=== PATIENT | female | born 1985 | race African-American/Black ===

== ENCOUNTER 2020-02-13 05:26 | Emergency (ER) | payer MEDICAID, OTHER ==
[~2020-02-13] VITALS: Ht 170.2 cm; Wt 76.2 kg
[~2020-02-13 05:26] MED LIST: BCP
[2020-02-13 05:34] VITALS: BP 128/86
== END 2020-02-13 08:02 | disposition home or self-care (01) ==
LOC: ER 05:26
DX: N76.4 Abscess of vulva (principal)
CPT/HCPCS: 56405

== ENCOUNTER 2021-05-23 03:06 | Emergency (ER) | payer MEDICAID ==
[~2021-05-23] VITALS: Ht 170.2 cm; Wt 83.0 kg
[2021-05-23 03:08] VITALS: BP 124/89
[2021-05-23 03:44] LABS: Mean Corpuscular Volume 92.6 fL (80.0-100.0); Nucleated Red Blood Cells % 0.1 %
[2021-05-23 04:02] LABS: Albumin 4.1 g/dL (3.4-5.0); Basophils # (auto) 0 10 ^3/uL (0-0.2); Basophils % (auto) 0.7 % (0.0-2.0); Calcium 9.2 mg/dL (8.5-10.1); Eosinophils # (auto) 0.1 10 ^3/uL (0-0.8); Eosinophils % (auto) 1.6 % (0.0-7.0); Hematocrit 42.6 % (36.0-46.0); Hemoglobin 14.1 g/dL (12.2-16.2); Lymphocytes # (auto) 2.1 10 ^3/uL (0.4-5.4); Lymphocytes % (auto) 31.5 % (10.0-50.0); Mean Corpuscular Hemoglobin 30.6 pg (28.0-32.0); Monocytes # (auto) 0.7 10 ^3/uL (0-1.3); Neutrophils # (auto) 3.7 10 ^3/uL (1.6-8.6); Neutrophils % (auto) 56.2 % (37.0-80.0); Potassium 4.3 mmol/L (3.5-5.1); Red Blood Cells 4.61 10^6/uL (4.0-5.20); Red Cell Distribution Width 13.4 % (11.8-14.3); White Blood Cell 6.6 10^3/uL (4.4-10.8)
[2021-05-23 04:03] LABS: BUN/Creatinine Ratio 16.3
[2021-05-23 04:06] LABS: Bilirubin, Total 0.2 mg/dL (0.2-1.0); Total Protein 8.3 g/dL (6.4-8.2)
[2021-05-23 04:08] LABS: Urine Bacteria FEW /hpf (None Seen); Urine Blood 2+ /uL (Negative); Urine Mucus FEW (None Seen); Urine Specific Gravity 1.025 (1.001-1.035); Urine WBC 5 /hpf (0 - 5)
[2021-05-24] MEDS ORDERED: NITR-87 PO (05:00)
[2021-05-24] MEDS ORDERED: ONDA-144 PO (05:00)
== END 2021-05-23 06:03 | disposition left against medical advice (07) ==
LOC: ER 03:06
DX: N93.9 Abnormal uterine and vaginal bleeding, unspecified (principal); Z53.21 Procedure and treatment not carried out due to patient leaving prior to being seen by health care provider
CPT/HCPCS: 36415; 80053; 81001; 84702; 85025

== ENCOUNTER 2021-05-24 01:33 | Emergency (ER) | payer MEDICAID ==
[~2021-05-24] VITALS: Ht 170.2 cm; Wt 82.6 kg
[2021-05-24] MEDS ORDERED: NITR-87 PO (05:00)
[2021-05-24] MEDS ORDERED: ONDA-144 PO (05:00)
[2021-05-24 06:01] VITALS: BP 118/69
== END 2021-05-24 06:09 | disposition home or self-care (01) ==
LOC: ER 01:33
DX: N93.9 Abnormal uterine and vaginal bleeding, unspecified (principal); N39.0 Urinary tract infection, site not specified
CPT/HCPCS: 76830; 76856

== ENCOUNTER 2021-11-21 10:26 | Emergency (ER) | payer MEDICAID ==
[~2021-11-21] VITALS: Ht 170.2 cm; Wt 83.9 kg
[~2021-11-21 10:26] MED LIST changes: +NITR-87 PO; +ONDA-144 PO
[2021-11-21 11:16] LABS: Urine Bacteria FEW /hpf (None Seen); Urine Blood Negative /uL (Negative); Urine Mucus FEW (None Seen); Urine Specific Gravity 1.022 (1.001-1.035); Urine WBC 1 /hpf (0 - 5)
[2021-11-21 13:57] LABS: Basophils # (auto) 0 10 ^3/uL (0-0.2); Basophils % (auto) 0.7 % (0.0-2.0); Eosinophils # (auto) 0.1 10 ^3/uL (0-0.8); Eosinophils % (auto) 1.4 % (0.0-7.0); Hematocrit 40.2 % (36.0-46.0); Hemoglobin 13.2 g/dL (12.2-16.2); Lymphocytes # (auto) 1.7 10 ^3/uL (0.4-5.4); Lymphocytes % (auto) 35.4 % (10.0-50.0); Mean Corpuscular Hemoglobin 30.1 pg (28.0-32.0); Mean Corpuscular Hgb Conc. 32.7 g/dL (32.0-36.0); Mean Corpuscular Volume 91.9 fL (80.0-100.0); Monocytes # (auto) 0.5 10 ^3/uL (0-1.3); Monocytes % (auto) 10.6 % (0.0-12.0); Neutrophils # (auto) 2.5 10 ^3/uL (1.6-8.6); Neutrophils % (auto) 51.9 % (37.0-80.0); Nucleated Red Blood Cells % 0.1 %; Red Blood Cells 4.37 10^6/uL (4.0-5.20); Red Cell Distribution Width 13.2 % (11.8-14.3); White Blood Cell 4.8 10^3/uL (4.4-10.8)
[2021-11-21 14:16] LABS: Albumin 4.2 g/dL (3.4-5.0); Calcium 8.9 mg/dL (8.5-10.1)
[2021-11-21 14:31] LABS: Bilirubin, Total 0.3 mg/dL (0.2-1.0); Total Protein 8.1 g/dL (6.4-8.2)
[2021-11-21 15:24] LABS: BUN/Creatinine Ratio 15.4
[2021-11-21 17:30] VITALS: BP 126/83
== END 2021-11-21 17:37 | disposition home or self-care (01) ==
LOC: ER 10:26
DX: N83.201 Unspecified ovarian cyst, right side (principal); F17.210 Nicotine dependence, cigarettes, uncomplicated; Z79.899 Other long term (current) drug therapy; Z20.822 Contact with and (suspected) exposure to COVID-19
CPT/HCPCS: 36415; 74176; 76830; 76856; 80053; 81001; 85025